=== PATIENT | female | born 1980 | race Hispanic/Latino ===

== ENCOUNTER 2021-03-07 08:41 | Emergency (ER) | payer BC ==
[2021-03-07 08:56] VITALS: BP 131/89
[2021-03-07] MEDS ORDERED: ACETAMINOPHEN 500 MG TAB PO ONE (09:10)
[2021-03-07] MEDS ORDERED: IBUPROFEN 800 MG TAB PO ONE (09:10)
--- NOTE | 2021-03-07 09:14 | Emergency Department Report ---
ED ENT HPI - General Chief complaint: Earache Stated complaint: LT EAR PAIN Time Seen by Provider: 03/07/21 09:03 Source: patient Mode of arrival: Ambulatory Limitations: No Limitations - History of Present Illness Initial comments: CC: earache HPI: This is a 40 yo female with hx of recurrent ear infections presents with left ear swelling. She extracted wax from ear with irrigation yesterday. Her canal is swollen and tender to the touch. No fever. MD complaint: ear pain -: Gradual, days(s) (1 day) Location: L ear Severity: severe Quality: aching Consistency: constant Improves with: none Worsens with: other (palpation) - Related Data Previous Rx's Medication Instructions Recorded Last Taken Type Ciprofloxacin HCl/Dexameth 4 drops OT BID #1 bottle 03/07/21 Unknown Rx [Ciproflox-Dexameth Otic Susp] Allergies Allergy/AdvReac Type Severity Reaction Status Date / Time No Known Allergies Allergy Verified 03/07/21 08:56 ED Dental HPI - General Chief complaint: Earache Stated complaint: LT EAR PAIN Time Seen by Provider: 03/07/21 09:03 Source: patient Mode of arrival: Ambulatory Limitations: No Limitations - Related Data Previous Rx's Medication Instructions Recorded Last Taken Type Ciprofloxacin HCl/Dexameth 4 drops OT BID #1 bottle 03/07/21 Unknown Rx [Ciproflox-Dexameth Otic Susp] Allergies Allergy/AdvReac Type Severity Reaction Status Date / Time No Known Allergies Allergy Verified 03/07/21 08:56 ED Review of Systems ROS: Stated complaint: LT EAR PAIN Other details as noted in HPI Respiratory: denies: shortness of breath Cardiovascular: denies: chest pain Gastrointestinal: denies: abdominal pain, nausea, vomiting ED Past Medical Hx - Past Medical History Previous Medical History?: No - Surgical History Past Surgical History?: Yes Additional Surgical History: hysterectomy - Social History Smoking Status: Never Smoker Substance Use Type: None - Medications Home Medications: Home Medications Medication Instructions Recorded Confirmed Last Taken Type Ciprofloxacin HCl/Dexameth 4 drops OT BID #1 bottle 03/07/21 Unknown Rx [Ciproflox-Dexameth Otic Susp] ED Physical Exam - General Limitations: No Limitations General appearance: alert, in no apparent distress - Head Head exam: Present: atraumatic, normocephalic - Eye Eye exam: Present: normal appearance - ENT ENT exam: Present: mucous membranes moist, other (left auditory canal: erythematous edematous, very tender to touch, unable to visual TM) - Neurological Exam Neurological exam: Present: alert, oriented X3 - Psychiatric Psychiatric exam: Present: normal affect, normal mood - Skin Skin exam: Present: warm, dry, intact, normal color ED Course Vital Signs 03/07/21 08:53 Temperature 98.8 F Pulse Rate 88 Respiratory 18 Rate Blood Pressure 131/89 [Left] O2 Sat by Pulse 98 Oximetry ED Medical Decision Making - Medical Decision Making otitis externa left: Prescription for ciprofloxacin/dexamethasone otic drops provided Ms. Marie received Ibuprofen and Acetaminophen in the ED for pain relief. Critical care attestation.: If time is entered above; I have spent that time in minutes in the direct care of this critically ill patient, excluding procedure time. ED Disposition Clinical Impression: Left otitis externa Disposition: HOME / SELF CARE / HOMELESS Is pt being admited?: No Does the pt Need Aspirin: No Condition: Stable Instructions: Otitis Externa Prescriptions: Ciprofloxacin HCl/Dexameth [Ciproflox-Dexameth Otic Susp] 4 drops OT BID #1 bottle Referrals: JAMIE TINOCO MD [Staff Physician] - 3-5 Days
== END 2021-03-07 10:09 | disposition home or self-care (01) ==
LOC: ED 08:41
DX: H60.92 Unspecified otitis externa, left ear (principal); Z90.710 Acquired absence of both cervix and uterus
CPT/HCPCS: 99282

== ENCOUNTER 2021-04-21 08:32 | Outpatient (CLI) | payer BC ==
[2021-04-21 09:01] LABS: Basophils % (Auto) 0.7 % (0.0-1.8); Eosinophils # (Auto) 0.1 K/mm3 (0.0-0.4); Eosinophils % (Auto) 1.3 % (0.0-4.3); Hematocrit 37.5 % (30.3-42.9); Hemoglobin 12.6 gm/dl (10.1-14.3); Lymphocytes # (Auto) 1.6 K/mm3 (1.2-5.4); Lymphocytes % (Auto) 22.4 % (13.4-35.0); Mean Corpuscular HGB Conc 34 % (30-34); Mean Corpuscular Volume 86 fl (79-97); Monocytes # (Auto) 0.3 K/mm3 (0.0-0.8); Platelet Count 342 K/mm3 (140-440); Red Blood Count 4.37 M/mm3 (3.65-5.03); Red Cell Distribution Width 13.2 % (13.2-15.2)
[2021-04-21 09:05] LABS: Monocytes % (Auto) 4.6 % (0.0-7.3)
[2021-04-21 09:21] LABS: Alanine Aminotransferase 12 units/L (7-56); Albumin 4.4 g/dL (3.9-5); BUN/Creatinine Ratio 11; Blood Urea Nitrogen 8 mg/dL (7-17); Calcium 9.7 mg/dL (8.4-10.2); Chol/HDL Ratio 3.33 %; HDL Cholesterol 54 mg/dL (40-59); Hemolysis Index 7; LDL Cholesterol,Direct 111 mg/dL (50-130)
== END 2021-04-21 08:33 | disposition home or self-care (01) ==
LOC: LAB 08:32
PROVIDERS: ATTEND Internal Medicine
DX: Z00.00 Encounter for general adult medical examination without abnormal findings (principal); E78.5 Hyperlipidemia, unspecified; E55.9 Vitamin D deficiency, unspecified; E87.8 Other disorders of electrolyte and fluid balance, not elsewhere classified; R53.83 Other fatigue
CPT/HCPCS: 36415; 80053; 80061; 82306; 82607; 82728; 83735; 84443; 84630; 85025